=== PATIENT | female | born 2000 | race Caucasian/White ===

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

== ENCOUNTER → 2021-03-15 | Outpatient (CLI) | payer BC ==
[~2021-03-15] MED LIST: DOXY100T2 PO; OXYC1TAB11 PO
--- NOTE | 2021-03-15 16:41 | Diagnostic Imaging Report ---
EXAMINATION: CT neck with intravenous contrast. TECHNIQUE: Multiple contiguous axial images were obtained through the neck after the uneventful administration of intravenous contrast. All CT scans use one or more of the following dose optimizing techniques: automated exposure control, MA and/or KvP adjustment based on patient size and exam type or iterative reconstruction. HISTORY: Left-sided neck pain, left otitis externa. COMPARISON: None available. FINDINGS: Scattered subcentimeter lymph nodes are seen in the neck. None are pathologically enlarged or abnormally enhancing. The muscles of the neck are normal. Vessels of the neck demonstrate normal course and caliber. Fascial planes are preserved and the deep spaces of the neck are normal. The visualized airway is widely patent. The base of the skull and the temporal bones are normal. Limited views of the brain including the cerebellum and brainstem are normal. The limited view of the [place] is unremarkable. The visualized portions of the orbits are normal. The spinal canal is normal in caliber. Intervertebral disk heights are normal. Neural foramina are normal. Limited examination of the superior thorax shows no pulmonary infiltrate, suspicious nodules, or pleural effusions. IMPRESSION: 1. Normal CT examination of the neck. Dictated by: Dictated on workstation # [id number]
--- NOTE | 2021-03-15 16:51 | Diagnostic Imaging Report ---
PROCEDURE: CT maxillofacial without contrast. TECHNIQUE: Multiple contiguous axial images were obtained through the facial bones without the use of intravenous contrast. Auto Exposure Controls were utilized during the CT exam to meet ALARA standards for radiation dose reduction. INDICATION: Left otitis externa. Lymphadenopathy. COMPARISON: CT neck performed concurrently. FINDINGS: Left side: Left external auditory canal is clear. Tympanic membrane appears intact. Middle ear ossicles are unremarkable. There is no fluid or soft tissue within the middle ear cavity. Inner ear structures are normal in morphology. No abnormal expansion of the internal auditory canal. Mastoid air cells are clear. Right side: External auditory canal is clear. The tympanic membrane is unremarkable. Middle ear ossicles are normal. There is no fluid or soft tissue within the middle ear cavity. Inner ear structures are normal in morphology. Mastoid air cells are clear. Face: Paranasal sinuses are clear. Orbits are unremarkable. Nasopharynx is normal. IMPRESSION: 1. Bilateral external auditory canals are clear. 2. No fluid within the middle ear cavities. 3. Mastoid air cells are clear. Dictated by: Dictated on workstation # [id number]
== END ==
LOC: RAD 16:15
PROVIDERS: ATTEND Otolaryngology
DX: H60.92 Unspecified otitis externa, left ear (principal); M54.2 Cervicalgia; R59.0 Localized enlarged lymph nodes
CPT/HCPCS: 70486; 70491

== ENCOUNTER 2021-03-16 15:21 | Emergency (ER) | payer BC ==
[~2021-03-16] VITALS: Ht 167 cm; Wt 109.0 kg
--- NOTE | 2021-03-16 16:12 | ED General ---
General Stated Complaint: FACIAL SWELLING, NECK SWELLING, FEVER, VOMITING Source of Information: Patient Exam Limitations: No Limitations (GUERO GARCIA APRN) History of Present Illness Date Seen by Provider: Mar 16, 2021 Time Seen by Provider: 16:06 Initial Comments To ER by private vehicle from home with reports of left-sided neck discomfort, fever up to 10 1 at night, vomiting since 03/12/2021. History of hypogammaglobulinemia for which she is on subcu injections at home. She is from [place]. She has been seen by ear nose and throat in [place]. They ordered an outpatient CT yesterday which was of the neck and auditory canal, both of these were unremarkable. She has been on Percocet for pain control, Ciprodex otic, Floxin otic, Cipro orally and Medrol Dosepak that she finished 2 days ago. Timing/Duration: 1-2 Days Severity: Moderate Associated Systoms: Nausea/Vomiting (GUERO GARCIA APRN) Allergies and Home Medications Allergies Coded Allergies: amoxicillin (Verified Allergy, Unknown, 12/28/20) ceftriaxone (Verified Allergy, Unknown, 12/28/20) ciprofloxacin (Verified Allergy, Unknown, 12/28/20) Home Medications Doxycycline Hyclate 100 Mg Tablet, 100 MG PO BID Prescribed by: KAMLESH MCINTOSH on 03/16/21 180 Oxycodone HCl/Acetaminophen 1 Each Tablet, 1 EACH PO Q4H PRN for PAIN-MODERATE Prescribed by: KAMLESH MCINTOSH on 03/16/21 1851 Patient Home Medication List Home Medication List Reviewed: Yes (UGERO GARCIA APRN) Review of Systems Review of Systems Constitutional: see HPI, chills, fever EENTM: see HPI Respiratory: see HPI, cough Genitourinary: no symptoms reported Musculoskeletal: no symptoms reported Skin: no symptoms reported Psychiatric/Neurological: No Symptoms Reported Hematologic/Lymphatic: No Symptoms Reported (GUERO GARCIA APRN) Past Gokbinu-Tvznuj-Tbepgs Hx Immunizations Up To Date Tetanus Booster (TDap): Less than 5yrs (GUERO GARCIA APRN) Seasonal Allergies Seasonal Allergies: No (GUERO GARCIA APRN) Past Medical History Surgeries: Yes (ear tubes, sinus ) Adenoidectomy, Appendectomy, Ear Surgery, Tonsillectomy Respiratory: No Cardiac: No Neurological: No Genitourinary: No Gastrointestinal: No Musculoskeletal: No Endocrine: No HEENT: No Cancer: No Psychosocial: No Integumentary: No Blood Disorders: Yes (GUERO GARCIA APRN) Physical Exam Vital Signs Vital Signs - First Documented 03/16/21 16:27 Temp 36.6 Pulse 97 Resp 16 B/P (MAP) 150/100 (117) Pulse Ox 100 (KAMLESH MCINTOSH APRN) Vital Signs Capillary Refill : (GUERO GARCIA APRN) Height, Weight, BMI Height: '" Weight: lbs. oz. kg; 35.00 BMI Method: General Appearance: No Apparent Distress, WD/WN, Obese, Other (Alert and oriented no distress no stridor no trismus) Eyes: Bilateral Eye Normal Inspection, Bilateral Eye PERRL, Bilateral Eye EOMI HEENT: PERRL/EOMI, TMs Normal Neck: Full Range of Motion, Normal Inspection Respiratory: Normal Breath Sounds, No Accessory Muscle Use, No Respiratory Dis tress Cardiovascular: Regular Rate, Rhythm, Normal Peripheral Pulses Gastrointestinal: Normal Bowel Sounds, Non Tender, Soft Extremity: Normal Capillary Refill, Normal Inspection Neurologic/Psychiatric: Alert, Oriented x3 Skin: Normal Color, Warm/Dry (GUERO GARCIA APRN) Progress/Results/Core Measures Suspected Sepsis SIRS Temperature: Pulse: Respiratory Rate: Blood Pressure / Mean: (GUERO GARCIA APRN) Results/Orders Lab Results Laboratory Tests Test 03/16/21 16:10 Range/Units White Blood Count 9.5 4.3-11.0 10^3/uL Red Blood Count 4.74 3.80-5.11 10^6/uL Hemoglobin 14.1 11.5-16.0 g/dL Hematocrit 41 35-52 % Mean Corpuscular Volume 86 80-99 fL Mean Corpuscular Hemoglobin 30 25-34 pg Mean Corpuscular Hemoglobin Concent 35 32-36 g/dL Red Cell Distribution Width 11.9 10.0-14.5 % Platelet Count 380 130-400 10^3/uL Mean Platelet Volume 10.0 9.0-12.2 fL Immature Granulocyte % (Auto) 0 % Neutrophils (%) (Auto) 42 42-75 % Lymphocytes (%) (Auto) 49 H 12-44 % Monocytes (%) (Auto) 8 0-12 % Eosinophils (%) (Auto) 1 0-10 % Basophils (%) (Auto) 1 0-10 % Neutrophils # (Auto) 4.0 1.8-7.8 10^3/uL Lymphocytes # (Auto) 4.6 H 1.0-4.0 10^3/uL Monocytes # (Auto) 0.7 0.0-1.0 10^3/uL Eosinophils # (Auto) 0.1 0.0-0.3 10^3/uL Basophils # (Auto) 0.1 0.0-0.1 10^3/uL Immature Granulocyte # (Auto) 0.0 0.0-0.1 10^3/uL Sodium Level 143 135-145 MMOL/L Potassium Level 3.9 3.6-5.0 MMOL/L Chloride Level 108 H 98-107 MMOL/L Carbon Dioxide Level 25 21-32 MMOL/L Anion Gap 10 5-14 MMOL/L Blood Urea Nitrogen 12 7-18 MG/DL Creatinine 0.70 0.60-1.30 MG/DL Estimat Glomerular Filtration Rate 108 BUN/Creatinine Ratio 17 Glucose Level 104 70-105 MG/DL Calcium Level 9.3 8.5-10.1 MG/DL Corrected Calcium 9.1 8.5-10.1 MG/DL Total Bilirubin 0.4 0.1-1.0 MG/DL Aspartate Amino Transf (AST/SGOT) 16 5-34 U/L Alanine Aminotransferase (ALT/SGPT) 20 0-55 U/L Alkaline Phosphatase 84 40-136 U/L C-Reactive Protein High Sensitivity 0.63 H 0.00-0.50 MG/DL Total Protein 6.7 6.4-8.2 GM/DL Albumin 4.2 3.2-4.5 GM/DL Procalcitonin 0.01 <0.10 NG/ML Monoscreen NEGATIVE NEGATIVE Influenza Type A (RT-PCR) Not Detected Not Detecte Influenza Type B (RT-PCR) Not Detected Not Detecte SARS-CoV-2 RNA (RT-PCR) Not Detected Not Detecte (KAMLESH MCINTOSH APRN) My Orders Orders - KAMLESH MCINTOSH SKEIN INSPECTOR Procalcitonin (Pct) (03/16/21 16:29) Oxycodone/Apap 5/325mg Tablet (Percocet (03/16/21 17:15) Urine Bedside (03/16/21 17:45) Doxycycline Hyclate Tablet (Vibramycin T (03/16/21 17:45) (KAMLESH MCINTOSH SKEIN INSPECTOR) Medications Given in ED (KAMLESH MCINTOSH APRN) Vital Signs/I&O 03/16/21 03/16/21 16:27 18:20 Temp 36.6 Pulse 97 90 Resp 16 16 B/P (MAP) 150/100 (117) 140/90 Pulse Ox 100 100 (KAMLESH MCINTOSH SKEIN INSPECTOR) Vital Signs/I&O Capillary Refill : (GUERO GARCIA APRN) Progress Note : Time: 16:30 Progress Note Care assumed at this time. Reviewed HPI with patient and mother via telephone. Patient states her symptoms began last SundayMarch 06. She has followed with [facility] in [place] and was placed on multiple antibiotics, see HPI. Her [facility] provider scheduled her for outpatient CT neck and orbits. States that her symptoms are persisting despite her current medication regimen. Describes pain as "pressure" in her left jaw and ear. Has been taking Percocet at home for pain control. States this helps initially but wears of quickly. Mom reports extensive history of ear issues. Has had multiple bilateral tympanostomy tubes, ear infections, and bilateral Tympanic membrane grafting. Patient states when she gets ear infections she can "smell" the infection and she currently can smell the infection despite her current antibiotic regimen. Mom states she has had to be hospitalized for Vancomycin infusions multiple times in the past d/t failed antimicrobial treatment. Last dose around noon this afternoon. Basic labs, Bent, COVID, and Procalcitonin pending. CT NECK W IMPRESSION: 1. Normal CT examination of the neck. CT MAXOFACIAL W/O IMPRESSION: 1. Bilateral external auditory canals are clear. 2. No fluid within the middle ear cavities. 3. Mastoid air cells are clear. Given Percocet for pain. Labs reviewed and are unremarkable, no WBC elevation or left shift. Slight elevation in CRP. Procalcitonin-0.01. On exam she appears to have blister appearance on the superior aspect of her left TM. Could indicate Myringitis. She is allergic to PCN and Cephalosporins. Will have her continue her Cipro (not an allergy) and add Doxycycline to cover atypical infection mycoplasmal otitis media. Given list of local EENT for referral if she is going to continue treatment in this area. Reviewed POC with patient and her mom (per patient request). They are agreeable with plan. (KAMLESH MCINTOSH APRN) Departure Impression Primary Impression: Myringitis of left ear Disposition: 01 HOME, SELF-CARE Condition: Stable Departure-Patient Inst. Decision time for Depature: 17:57 (KAMLESH MCINTOSH APRN) Referrals: RAFI EVERETT MD [facility] (PCP) Primary Care Physician Patient Instructions: Ear Infection ED, LOCAL PHYSICIAN LIST Add. Discharge Instructions: Plan: 1. Continue all your previously prescribed treatments. 2. Will add Doxycycline 100mg by mouth twice a day for 10 days. 3. Avoid sun exposure as your skin may be more sensitive while taking. 4. Continue Ibuprofen and your Oxycodone as needed for pain. 5. Follow up with EENT of choice. 6. Return to ER for any new, concerning, worsening symptoms. Sony Osorio, Phone [phone] , [place] [address] Scripts Oxycodone HCl/Acetaminophen (Oxycodone-Acetaminophen 5-325) 1 Each Tablet 1 EACH PO Q4H PRN for PAIN-MODERATE MDD 6 for 3 Days, #12 TAB 0 Refills Prov: KAMLESH MCINTOSH APRN 03/16/21 Doxycycline Hyclate (Doxycycline Hyclate) 100 Mg Tablet 100 MG PO BID for 10 Days, #20 TAB 0 Refills Prov: KAMLESH MCINTOSH APRN 03/16/21 Work/School Note: Work Release Form Date Seen in the Emergency Department: Mar 16, 2021 Return to Work: Mar 23, 2021 GUERO GARCIA APRN Mar 16, 2021 16:12 KAMLESH MCINTOSH APRN Mar 16, 2021 16:55
[2021-03-16] MEDS ORDERED: KETOROLAC 60 MG/2 ML VIAL IM ONE (16:15)
[2021-03-16 16:16] LABS: BASOPHILS # (AUTO) 0.1 10^3/uL (0.0-0.1); BASOPHILS % (AUTO) 1 % (0-10); EOSINOPHILS # (AUTO) 0.1 10^3/uL (0.0-0.3); EOSINOPHILS % (AUTO) 1 % (0-10); HEMATOCRIT 41 % (35-52); HEMOGLOBIN 14.1 g/dL (11.5-16.0); LYMPHOCYTES # (AUTO) 4.6 10^3/uL (1.0-4.0); LYMPHOCYTES % (AUTO) 49 % (12-44); MEAN CORPUSCULAR HEMOGLOBIN 30 pg (25-34); MEAN CORPUSCULAR HGB CONC 35 g/dL (32-36); MEAN CORPUSCULAR VOLUME 86 fL (80-99); MONOCYTES # (AUTO) 0.7 10^3/uL (0.0-1.0); MONOCYTES % (AUTO) 8 % (0-12); NEUTROPHILS % (AUTO) 42 % (42-75); PLATELET COUNT 380 10^3/uL (130-400); WHITE BLOOD COUNT 9.5 10^3/uL (4.3-11.0)
[2021-03-16 16:39] LABS: ALBUMIN 4.2 GM/DL (3.2-4.5)
[2021-03-16 16:40] LABS: POTASSIUM 3.9 MMOL/L (3.6-5.0)
[2021-03-16 16:41] LABS: CALCIUM 9.3 MG/DL (8.5-10.1)
[2021-03-16 16:42] LABS: TOTAL PROTEIN 6.7 GM/DL (6.4-8.2)
[2021-03-16 16:44] LABS: BILIRUBIN,TOTAL 0.4 MG/DL (0.1-1.0)
[2021-03-16 16:46] LABS: CREATININE SERUM 0.7 MG/DL (0.60-1.30)
[2021-03-16] MEDS ORDERED: oxyCODONE/APAP 5/325MG (PERCOCET 5) TABLET PO ONE (17:15)
[2021-03-16] MEDS ORDERED: DOXYCYCLINE 100 MG (VIBRAMYCIN) TABLET PO ONE (17:45)
[2021-03-16] MEDS ORDERED: DOXY100T2 PO (18:01)
[2021-03-16 18:20] VITALS: BP 140/90
[2021-03-16] MEDS ORDERED: OXYC1TAB11 PO (18:50)
== END 2021-03-16 18:33 | disposition home or self-care (01) ==
LOC: EDUNIT# 15:21 → ER 15:24
DX: H73.22 Unspecified myringitis, left ear (principal); E66.9 Obesity, unspecified; Z20.822 Contact with and (suspected) exposure to COVID-19
CPT/HCPCS: 36415; 80053; 84145; 84703; 85025; 86141; 86308; 87636; 99284

== ENCOUNTER 2021-03-21 21:26 | Emergency (ER) | payer BC ==
[~2021-03-21] VITALS: Ht 170.1 cm; Wt 113.3 kg
--- NOTE | 2021-03-21 22:42 | ED EENT ---
History of Present Illness General Chief Complaint: Ear Problems Stated Complaint: L EAR INFECTION Source: patient Exam Limitations: no limitations History of Present Illness Date Seen by Provider: Mar 21, 2021 Time Seen by Provider: 22:30 Initial Comments 20-year-old female presents to the emergency department with a chief complaint of left ear pain. Patient has had about 2 weeks of ear pain and been on multiple antibiotics as well as steroids for this ear pain. Her last visit to the emergency room was March 16. Patient was started on some doxycycline. She has been taking Percocet for pain as well as nausea medicine, ibuprofen and Tylenol. She states she still has pain. No fever reported today but she states she has had some fever at home. Patient has a history of hypogammaglobulinemia, she takes injections for this at home. Most of her doctors are in [place]. Patient stated she did see her ENT doctor at one point for this ear infection but does not have follow-up. When she was here on the she was instructed to either follow-up with Dr. Reyes or Dr. Mcginnis. Patient here primarily secondary to her ear pain. All other review of systems reviewed and negative except as stated above. Timing/Duration: gradual Severity: moderate Location: ear (L) Prearrival Treatment: prescription meds Modifying Factors: Improves With Antibiotics Associated Symptoms: change in hearing, other (headaches) Allergies and Home Medications Allergies Coded Allergies: amoxicillin (Verified Allergy, Unknown, 12/28/20) ceftriaxone (Verified Allergy, Unknown, 12/28/20) ciprofloxacin (Verified Allergy, Unknown, 12/28/20) Home Medications Doxycycline Hyclate 100 Mg Tablet, 100 MG PO BID Prescribed by: KAMLESH MCINTOSH on 03/16/21 180 Oxycodone HCl/Acetaminophen 1 Each Tablet, 1 EACH PO Q4H PRN for PAIN-MODERATE Prescribed by: KAMLESH MCINTOSH on 03/16/21 1851 Patient Home Medication List Home Medication List Reviewed: Yes Review of Systems Review of Systems Constitutional: see HPI Eyes: No Symptoms Reported Ears: Pain Nose: no symptoms reported Mouth: no symptoms reported Throat: no symptoms reported Respiratory: no symptoms reported Cardiovascular: no symptoms reported Gastrointestinal: nausea, vomiting Musculoskeletal: no symptoms reported Skin: no symptoms reported Neurological: Headache All Other Systems Reviewed Negative Unless Noted: Yes Past Klfnehh-Ikvmhw-Tcejhi Hx Immunizations Up To Date Tetanus Booster (TDap): Less than 5yrs Seasonal Allergies Seasonal Allergies: No Past Medical History Surgeries: Yes (ear tubes, sinus ) Adenoidectomy, Appendectomy, Ear Surgery, Tonsillectomy Respiratory: No Cardiac: No Neurological: No Genitourinary: No Gastrointestinal: No Musculoskeletal: No Endocrine: No HEENT: No Cancer: No Psychosocial: No Integumentary: No Blood Disorders: Yes Physical Exam Vital Signs Vital Signs - First Documented 03/21/21 22:03 Temp 37.1 Pulse 77 Resp 18 B/P (MAP) 136/96 (109) Pulse Ox 97 O2 Delivery Room Air Height, Weight, BMI Height: '" Weight: lbs. oz. kg; 39.00 BMI Method: General Appearance: WD/WN, no apparent distress Eyes: bilateral eye normal inspection, bilateral eye PERRL, bilateral eye EOMI Ears: left ear auricle normal, left ear canal normal, left ear TM bulging (Slightly red, blister/swelling noted to the anterior upper aspect of the TM. She does also seem to have a effusion behind the TM. The canal looks good. There is no redness of the tympanic membrane.) Nose: normal inspection Cardiovascular: regular rate, rhythm Respiratory: lungs clear, normal breath sounds, no respiratory distress, no accessory muscle use Neurologic/Psychiatric: alert, normal mood/affect, oriented x 3 Skin: normal color, warm/dry Progress/Results/Core Measures Results/Orders Vital Signs/I&O 03/21/21 22:03 Temp 37.1 Pulse 77 Resp 18 B/P (MAP) 136/96 (109) Pulse Ox 97 O2 Delivery Room Air Progress Progress Note : Time: 23:33 Progress Note Long discussion with the patient regarding the current course of therapy. She is on doxycycline day 5. I have recommended that she stay on this medication and continue her current pain management course. She really needs to follow-up with an ENT doctor. I discussed this with her mom, she states that she will call her ear nose and throat doctor in [place] first thing in the morning. Josiane said she had not followed up with ENT referrals that were given to her on the fourth when she was here in the emergency department. I really believe that she probably needs myringotomy in order to help her ear pain. But that would be up to ENT. I recommended she switch from ibuprofen to naproxen. I have encouraged fluids. She has no clinical or objective findings to warrant further studies from the emergency department. She is not tachycardic, hypotensive or febrile at presentation. I do not believe that clinically she is septic especially with regards to her history of hypogammaglobulinemia. Mother and patient are comfortable with the plan of care. All questions have been sought and answered. Patient is stable for discharge. Departure Impression Primary Impression: Myringitis of left ear Additional Impression: Ear pain, left Disposition: 01 HOME, SELF-CARE Condition: Stable Departure-Patient Inst. Decision time for Depature: 23:35 Referrals: RAFI REYES MD [facility] (PCP) Primary Care Physician Patient Instructions: Ear Infection ED Add. Discharge Instructions: Continue your antibiotics as prescribed. Instead of mwme-uyq-mbbsrlu ibuprofen, you can take Aleve, 2 pills which is 500 mg twice a day with food for pain. Continue to use heating pads to the left ear for discomfort. Please call Dr. Amaya office tomorrow or your ENT in [place] for a follow-up appointment this week. Return to the emergency department for high fevers, worsening pain or other emergent concerning symptoms. Scripts Promethazine HCl (Promethazine Tablet) 25 Mg Tablet 25 MG PO Q6H PRN for NAUSEA/VOMITING, #10 TAB Prov: MATTHEW PALMER MD 03/21/21 MATTHEW PALMER MD Mar 21, 2021 22:42
[2021-03-21] MEDS ORDERED: PROM25TA14 PO (23:39)
[2021-03-21 23:45] VITALS: BP 134/92
== END 2021-03-21 23:47 | disposition home or self-care (01) ==
LOC: EDUNIT# 21:26 → ER 21:27
DX: H73.22 Unspecified myringitis, left ear (principal); H92.02 Otalgia, left ear
CPT/HCPCS: 99282